=== PATIENT | male | born 1990 | race Two or more races ===

== ENCOUNTER 2021-05-16 04:12 | Emergency (ER) | payer MEDICAID, SELFPAY ==
[2021-05-16 04:26] VITALS: BP 125/84; PULSE 86; RESP 18; TEMP 36.4; O2SAT 97; BMI 21.6
[2021-05-16] MEDS: Lidocaine 4 % Patch ADH..PATCH 1 PATCH TRANSDERMA (05:37)
[2021-05-16] MEDS: Ketorolac Tromethamine 15 MG/ML VIAL IM (05:37)
[2021-05-16] MEDS: Acetaminophen 325 MG TABLET 975 MG PO (05:37)
--- NOTE | 2021-05-16 06:10 | ED.BACK ---
HPI - Back Pain/Injury General Chief Complaint: Back Pain/Injury Stated Complaint: back pain Time Seen by Provider: 05/16/21 05:22 Source: patient Mode of arrival: ambulatory History of Present Illness HPI Narrative: 30-year-old male without significant past medical history states that he was moving a dresser and felt a pop and a pull in the middle of his lower back yesterday. Patient states that since that time his back pain has worsened especially after sleeping for a while and he states that he is having some pain in to the left lower extremity without weakness and denies any bowel/bladder dysfunction or history of IVDA. Related Data Previous Rx's Medication Instructions Recorded cyclobenzaprine 10 mg PO BEDTIME PRN #4 tab 05/16/21 ketorolac 10 mg PO Q6H PRN 5 Days #20 tab 05/16/21 Allergies Allergy/AdvReac Type Severity Reaction Status Date / Time No Known Allergies Allergy Unverified 05/16/21 05:22 Review of Systems Review of Systems: Pertinent positives and negatives as stated in the HPI and 10 point review of systems is otherwise negative. [facility] Past Medical History Source: nursing notes reviewed Social History Social History Advance Directives: No Physical Exam Vital Signs: Vital Signs: Last Vital Signs Temp 97.5 F 05/16/21 04:26 Pulse 86 05/16/21 04:26 Resp 18 05/16/21 04:26 BP 125/84 05/16/21 04:26 Pulse Ox 97 05/16/21 04:26 Body Mass Index 21.6 VITAL SIGNS: Reviewed. GENERAL: Well developed, well nourished, in no acute distress. HEAD: Normocephalic/atraumatic EYES: PERRLA, EOMI OROPHARYNX: no oral lesions noted, posterior pharynx clear LUNGS: Normal breath sounds. No adventitious sounds or accessory muscle use. SpO2<97> CARDIOVASCULAR: Regular rate and rhythm without noted murmurs ABDOMEN: Soft, non-tender, non-distended with bowel sounds. BACK: No midline lumbar tenderness, but paraspinal muscle spasm and tenderness on palpation and otherwise bilateral lower extremities are neurovascularly intact SKIN: Inspection of the skin reveals no rashes NEUROLOGIC: Alert and oriented x 4. Strength and sensation to light touch were grossly intact x 4. Course Course Course Narrative: 30-year-old male with history and clinical presentation consistent with back strain and patient was provided with combination analgesics with some improvement in the symptoms. It was explained to the patient that this will take some time and that additional medications such as muscle relaxes will be provided to him. Discharge Plan Discharge Clinical Impression: Strain of lumbar region, Muscle spasm Patient Disposition: Home, Self-Care Instructions: Low Back Strain (ED), Muscle Spasm (ED), Lower Back Exercises (ED), Core Strengthening Exercises (ED) Additional Instructions: 1. Tylenol 1000 mg, orally, every 6 hours as needed for pain control. Do not exceed 4000 mg within 24 hours. 2. Lidocaine patch, this is available [id number] and should be apply to area of maximal tenderness as directed on the outside packaging. 3. Please follow-up with your primary care provider in the next 2-3 days for re-evaluation. Until that time it is not recommended that you do any heavy lifting greater than 25 lb (this is approximately to 1 gal of milk). Return to the ER for acute worsening of symptoms. Prescriptions: New ketorolac 10 mg tablet 10 mg PO Q6H PRN (Reason: pain) 5 Days Qty: 20 RF: 0 cyclobenzaprine 10 mg tablet 10 mg PO BEDTIME PRN (Reason: muscle spasm) Qty: 4 RF: 0 Referrals: [facility] [Primary Care Provider] - 2 days Stand Alone Forms: Work/School Release
== END 2021-05-16 06:53 | disposition home or self-care (01) ==
PROVIDERS: Emergency Provider Student in an Organized Health Care Education/Training Program
DX: S39.012A Strain of muscle, fascia and tendon of lower back, initial encounter (principal); M62.830 Muscle spasm of back; X50.0XXA Overexertion from strenuous movement or load, initial encounter; Y93.89 Activity, other specified; Y92.9 Unspecified place or not applicable; Y99.9 Unspecified external cause status
CPT/HCPCS: 96372; 99283; 99284; J1885

== ENCOUNTER 2024-05-11 16:14 | Outpatient (REF) | payer MEDICAID, SELFPAY ==
[2024-05-11 16:46] LABS: Appearance Urine Clear; Color Urine Yellow; Glucose Urine UA Negative (Negative); Leukocyte Esterase Urine Trace (Negative); Nitrite Urine Negative (Negative); PH 7.5 (5.0-9.0); Specific Gravity - Urine 1.015 (1.005-1.025); UMIC TRIGGER UACC YES; Urine Blood Negative (Negative); Urine Ketones Negative (Negative); Urine Protein Negative (Neg-Trace)
[2024-05-11 16:51] LABS: Bacteria Urine None Seen (None Seen); Hyaline Casts Urine 0-2 /LPF (0-2); RBC Urine 0-2 /HPF (0-2); Squamous Epithelial Cell Urine 0-2 /HPF (0-2); WBC Urine 0-5 /HPF (0-5)
[2024-05-12 03:03] LABS: CT PCR NOT DETECTED (Not Detect.); NG PCR NOT DETECTED (Not Detect.)
[2024-05-13 02:18] LABS: Trichomonas vag. RNA Ur Male NOT DETECTED (NOT DETECTED)
[2024-05-17 15:03] LABS: Mycoplasma genitalium RNA Detected (Not Detected); Mycoplasma hominis PCR Not Detected (Not Detected); Ureaplasma parvum PCR Not Detected (Not Detected); Ureaplasma urealyticum PCR Not Detected (Not Detected)
== END 2024-05-11 16:15 | disposition home or self-care (01) ==
LOC: HO.HHCLNP 16:14
PROVIDERS: Visit Provider Nurse Practitioner Primary Care
DX: N50.82 Scrotal pain (principal)
CPT/HCPCS: 36415; 81001; 87491; 87563; 87591; 87661; 87798

== ENCOUNTER → 2024-06-05 12:55 | Outpatient (REF) | payer MEDICAID, SELFPAY ==
--- NOTE | 2024-06-05 13:00 | HM_ITS ---
Conclusion: 1. Patient was monitored for total period of 2 days 2. Baseline was normal sinus rhythm with average heart rate of 77 beats per minute 3. No significant pauses noted 4. Rare PACs and PVCs noted 5. No patient reported events MTDD
== END ==
LOC: HO.CARD 12:55
PROVIDERS: PCP Nurse Practitioner Primary Care; Visit Provider Nurse Practitioner Primary Care
DX: R00.2 Palpitations (principal)
CPT/HCPCS: 93225

== ENCOUNTER → 2024-06-05 13:00 | Outpatient (BNV) | payer MEDICAID, SELFPAY | PROVIDERS: PCP Nurse Practitioner Primary Care; Visit Provider Internal Medicine Cardiovascular Disease | DX: I49.1 Atrial premature depolarization (principal); I49.3 Ventricular premature depolarization | CPT/HCPCS: 93227 ==

== ENCOUNTER 2024-07-07 15:55 | Outpatient (REF) | payer MEDICAID, SELFPAY ==
[2024-07-08 03:45] LABS: CT PCR DETECTED (Not Detect.); NG PCR NOT DETECTED (Not Detect.)
[2024-07-10 13:48] LABS: ~Hepatitis C Antibody Nonreactive (Nonreactive)
[2024-07-10 13:49] LABS: HIV AB/AG Nonreactive (Nonreactive); Syphilis Screen Nonreactive (Nonreactive)
[2024-07-10 14:33] LABS: HIV Num 1 0.05 S/CO (0.00-0.99); ~HepC Num1 0.08 S/CO (0.00-0.79)
== END 2024-07-07 15:56 | disposition home or self-care (01) ==
LOC: HO.HHCL 15:55
PROVIDERS: Referring Provider Student in an Organized Health Care Education/Training Program; Visit Provider Family Medicine
DX: Z11.3 Encounter for screening for infections with a predominantly sexual mode of transmission (principal)
CPT/HCPCS: 36415; 86780; 86803; 87389; 87491; 87591

== ENCOUNTER 2024-07-10 15:21 | Outpatient (REF) | payer MEDICAID, SELFPAY ==
[2024-07-10 16:27] LABS: MANUAL DIFF FLAG NO
[2024-07-10 16:58] LABS: Basophils Absolute Auto 0.1 X10*3/uL (0.0-0.2); Basophils Percent Auto 0.7 % (0-2); Eosinophils Absolute Auto 0.1 X10*3/uL (0.0-0.4); Eosinophils Percent Auto 0.9 % (0-4); Hematocrit 43.4 % (42.0-52.0); Hemoglobin 15.1 g/dl (14.0-18.0); Imm Gran Abs Auto 0.06 X10*3/uL (0.00-0.03); Imm Gran Pct Auto 0.7 % (0.0-0.4); Lymphocytes Absolute Auto 2.7 X10*3/uL (1.2-4.9); Lymphocytes Percent Auto 31.5 % (20-40); Mean Corpuscular HGB Conc 34.8 g/dl (31.0-36.0); Mean Corpuscular Volume 86.3 fL (80.0-98.0); Mean Platelet Volume 10.4 fL (9.4-12.4); Monocytes Absolute Auto 0.6 X10*3/uL (0.1-1.2); Monocytes Percent Auto 7.5 % (2-11); Neutrophils Percent Auto 58.7 % (45-73); Platelet Count 304 X10*3/uL (160-400); Red Blood Count 5.03 X10*6/uL (4.60-5.80); Red Cell Distribution Width 14.5 % (11.0-16.0); White Blood Count 8.5 X10*3/uL (4.8-10.8)
[2024-07-11 05:45] LABS: CT PCR DETECTED (Not Detect.); NG PCR NOT DETECTED (Not Detect.)
[2024-07-13 08:19] LABS: HIV RNA PCR Qn Copies Not Detected Copies/mL; HIV RNA PCR Qn Log Copies Not Detected Log cps/mL
== END 2024-07-10 15:22 | disposition home or self-care (01) ==
LOC: HO.HHCL 15:21
PROVIDERS: Visit Provider Family Medicine
DX: Z11.3 Encounter for screening for infections with a predominantly sexual mode of transmission (principal)
CPT/HCPCS: 85025; 87491; 87536; 87591; 87900

== ENCOUNTER 2024-07-13 15:35 | Outpatient (REF) | payer MEDICAID, SELFPAY ==
[2024-07-13 16:10] LABS: Appearance Urine Clear; Color Urine Yellow; Glucose Urine UA Negative (Negative); Leukocyte Esterase Urine Negative (Negative); Nitrite Urine Negative (Negative); PH 6.5 (5.0-9.0); Specific Gravity - Urine 1.015 (1.005-1.025); Urine Blood Negative (Negative); Urine Ketones Negative (Negative); Urine Protein Trace mg/dL (Neg-Trace)
== END 2024-07-13 15:36 | disposition home or self-care (01) ==
LOC: HO.HHCL 15:35
PROVIDERS: Visit Provider Family Medicine
DX: Z13.89 Encounter for screening for other disorder (principal)
CPT/HCPCS: 81003

== ENCOUNTER 2024-08-23 17:35 | Outpatient (REF) | payer MEDICAID, SELFPAY ==
[2024-08-24 11:52] LABS: CT PCR NOT DETECTED (Not Detect.); NG PCR NOT DETECTED (Not Detect.)
[2024-08-29 07:57] LABS: Mycoplasma genitalium RNA Not Detected (Not Detected); Mycoplasma hominis PCR Not Detected (Not Detected); Ureaplasma parvum PCR Not Detected (Not Detected); Ureaplasma urealyticum PCR Not Detected (Not Detected)
== END 2024-08-23 17:36 | disposition home or self-care (01) ==
LOC: HO.HHCLNP 17:35
PROVIDERS: Visit Provider Emergency Medicine
DX: Z86.19 Personal history of other infectious and parasitic diseases (principal)
CPT/HCPCS: 36415; 87491; 87563; 87591; 87798

== ENCOUNTER 2025-03-29 10:49 | Outpatient (REF) | payer MEDICAID, SELFPAY ==
--- OUTSIDE RECORDS SUMMARY | 2025-03-29 11:18 | XMS_ITS | Encounter Summary ---
Author Organization [employer] Address [address] [place] [address] Care Team Providers Care Blind Aide Name Role Phone Arlen Peterson NP Primary Care Provider [phone] Encounter Details Date Type Department Care Team ([facility] st Contact Info) Description 07/08/2024 Orders Only [facility] [address] [place] [address] Teresa Valentino MD [address] [place] [address] Social History Tobacco Use Types Packs/Day Years Used Date Smoking Tobacco: Every Day Cigarettes Passive Smoke Exposure: Current Smokeless Tobacco: Never Depression Answer Date Recorded Patient Health Questionnaire-9 Score 22 06/05/2024 Patient Health Questionnaire-9 Score 22 06/05/2024 Last PHQ-9: Questionnaire Data Not on file 0 06/05/2024 Depression Answer Date Recorded Patient Health Questionnaire-2 Score 5 06/16/2024 Sex and Gender Information Value Date Recorded Sex Assigned at Male 08/31/2022 10:23 AM EDT Legal Sex Male 10:23 AM EDT Gender Identity Male 08/31/2022 10:23 AM EDT Sexual Orientation Straight 08/31/2022 10 :23 AM EDT documented as of this encounter Plan of Treatment Not on file documented as of this encounter Visit Diagnoses Not on filedocumented in this encounter Additional Health Concerns Assessment Noted Time PHQ-9 Depression Total Score: 22 024 2:52 PM EDT documented as of this encounter Care Teams Blind Aide Relationship Specialty Start Date End Date Arlen Peterson NP [address] [place] [address] PCP - General Family Medicine 03/28/24 documented as of this encounter
[2025-03-29 12:47] LABS: HBsAGNum1 0.31 S/CO (0.00-0.99); HIV AB/AG Nonreactive (Nonreactive); HIV Num 1 0.05 S/CO (0.00-0.99); Hepatitis B Surface Antigen Negative (Negative); ~HepC Num1 0.12 S/CO (0.00-0.79); ~Hepatitis C Antibody Nonreactive (Nonreactive)
[2025-03-29 13:41] LABS: CT PCR NOT DETECTED (Not Detect.); NG PCR NOT DETECTED (Not Detect.)
[2025-04-01 20:04] LABS: RPR Rapid Plasma Reagin NON-REACTIVE (NON-REACTIVE)
== END 2025-03-29 10:50 | disposition home or self-care (01) ==
LOC: HO.HHCL 10:49
PROVIDERS: Visit Provider Internal Medicine Geriatric Medicine
DX: N53.12 Painful ejaculation (principal)
CPT/HCPCS: 86592; 86803; 87340; 87389; 87491; 87591

== ENCOUNTER 2025-05-09 12:10 | Outpatient (REF) | payer MEDICAID, SELFPAY ==
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
== END 2025-05-09 12:11 | disposition home or self-care (01) ==
LOC: HO.HHCL 12:10
PROVIDERS: PCP Nurse Practitioner Primary Care; Visit Provider Internal Medicine Geriatric Medicine
DX: N53.12 Painful ejaculation (principal)
CPT/HCPCS: 87563